=== PATIENT | female | born 1955 | race Caucasian/White ===

== ENCOUNTER → 2017-02-21 | Outpatient (CLI) | payer OTHER ==
[~2017-02-21] MED LIST: METHADONE HCL 110 M1 PO
[2017-02-21 16:14] LABS: HEMOGLOBIN 11.2 gm/dL (12.0-15.0); MCHC 33.9 g/dL (28.0-37.0); MCV 91.4 fL (80.0-100.0); RBC 3.62 mil/uL (4.20-5.00); RDW 14.2 % (10.5-14.5); WBC 5.4 thou/uL (4.0-11.0)
[2017-02-21 16:21] LABS: CALCIUM 8.5 mg/dL (8.5-10.1); CREATININE 0.7 mg/dL (0.6-1.0); POTASSIUM 4.4 mmol/L (3.5-5.1)
[2017-02-21 16:28] LABS: ALBUMIN 3.6 g/dL (3.4-5.0); TOTAL BILIRUBIN 0.3 mg/dL (<0.1-1.0); TOTAL PROTEIN 7.2 g/dL (6.4-8.2)
== END ==
LOC: RAD 15:40
PROVIDERS: Internal Medicine Pulmonary Disease
DX: R06.00 Dyspnea, unspecified (principal); J98.11 Atelectasis

== ENCOUNTER → 2017-06-08 | Outpatient (CLI) | payer OTHER | LOC: GI 08:57 → RAD 09:03 | DX: R06.00 Dyspnea, unspecified (principal) ==

== ENCOUNTER → 2020-03-31 | Outpatient (CLI) | payer OTHER ==
[~2020-03-31] MED LIST changes: +ACAI BERRY500 MG PO; +ACTONEL 5 MG5 M1 PO; +ACTONEL150 MG; +ACTONEL150 MG PO; +ACYCLOVIR 400400 M1; +ACYCLOVIR 400400 MG; +ACYCLOVIR 400400 MG PO; +ADDERALL 10 MG10 MG PO; +ADVAIR 250-501 EACH; +ADVAIR 250-501 EACH IH; +ALBUTEROL INH; +ALLEGRA ALLERG180 MG; +ALLEGRA ALLERG180 MG PO; +ALLEGRA180 MG PO; +ALPRAZOLAM; +AMITRIPTYLINE H25 M2 GT; +AMOXICILLIN500 M1; +APAP500 PO; +ATIVAN0.5 MG PO; +AUGMENTIN 875-1 EACH PO; +BIOTIN5000 MCG PO; +BONIVA150 MG; +BRINTELLIX10 MG PO; +BRINTELLIX5 MG PO; +BUPRENORPHINE HC2 MG SUBLING; +BUPROPION PO; +CARAFATE 1 GM TA1 G1 PO; +CARISOPRODOL 3350 MG PO; +CELEBREX 200 M200 M1 PO; +CELEBREX 200 M200 MG PO; +CELEBREX PO; +CELEXA 10 MG TA10 M1 PO; +CENTRUM SILVER1 EAC2 PO; +CHLORDIAZEPOXI1 EAC1; +CITRACAL + BON1 EACH PO; +CLONAZEPAM PO; +CLORAZEPATE D3.75 M2 PO; +CO Q-10 RED YE1 EACH PO; +CYMBALTA30 MG PO; +CYMBALTA60 MG PO; +DOLOPHINE HCL10 MG PO; +DOLOPHINE HCL5 MG PO; +DURAGESIC1 EAC2 TRANSDERM; +ENDOCET 10-3251 EACH PO; +FENTANYL PA50 MCG/HR TP; +FISHOIL; +GAVISCON TABLE1 EACH; +LANSOPRAZOLE30 MG PO; +LATUDA20 MG PO; +LIDOPATCH1 EACH TOP; +LIORESAL 10 MG10 MG PO; +MEDROLDOSEPACK PO; +MOBIC15 MG PO; +MOVANTIK25 MG PO; +MS CONTIN15 MG PO; +MUCINEX1200 MG PO; +MULTIVITAMINS; +MULTIVITAMINS1 EAC7 PO; +NABUMETONE 750750 M1 PO; +NEURONTIN 300300 M1 PO; +NEURONTIN600 MG PO; +NEXIUM40 MG PO; +NORCO 10-325 T1 EACH PO; +NUCYNTA75 MG PO; +NYAMYC15 GM PO; +NYSTATIN; +NYSTATIN 1100000 U/M PO; +OXYCODONE HCL5 MG PO; +PATADAY2.5 ML; +PERCOCET 10-321 EACH PO; +PERCOCET PO; +PREDNISONE 20 M20 MG PO; +PROAIR RESPICL90 MCG INH; +PROAIR RESPICL90 MCG PO; +PROCARDIA10 MG PO; +PROTONIX40 M1 PO; +RESTASIS1 EACH OPHTHALMIC; +RISEDRONATE SO150 MG PO; +SPIRIVA; +SPIRIVA INH; +SYMBICORT160 MCG/4. INH; +TRAMADOL 50 MG50 MG PO; +TRAZODONE HCL100 MG PO; +TRAZODONE HCL50 MG PO; +TRILEPTAL 300300 MG PO; +TRILEPTAL150 MG PO; +VALTREX 500 MG500 M1 PO; +VALTREX 500 MG500 MG PO; +VIIBRYD40 MG PO; +VITAMIN E400 UNIT PO; +VITAMINC500 PO; +WELLBUTRIN SR150 MG PO; +XANAX 0.5 MG0.5 M1 PO; +ZANAFLEX2 M1 PO; +ZANAFLEX4 M1 PO; +ZPAK PO; +[UNRECOGNIZED DRUG - SUPPLY]
== END ==
LOC: RAD 12:30
DX: J44.1 Chronic obstructive pulmonary disease with (acute) exacerbation (principal)

== ENCOUNTER → 2020-07-21 | Outpatient (CLI) | payer OTHER | LOC: CAT 13:01 | PROVIDERS: ATTEND Internal Medicine | DX: Z12.2 Encounter for screening for malignant neoplasm of respiratory organs (principal); Z87.891 Personal history of nicotine dependence; J43.9 Emphysema, unspecified ==